=== PATIENT | female | born 1970 | race Caucasian/White ===

== ENCOUNTER → 2024-04-13 | Outpatient (CLI) | payer BC, SELFPAY ==
--- NOTE | 2024-04-13 13:30 | XR_ITS ---
Examination: Breast ultrasound complete, bilateral Date and time of exam: April 13, 2024 1323 hours INDICATIONS: Mammogram January 31, 2024 8 mm oval mass upper outer left breast anterior depth, bilateral microcalcifications Technique: Real-time grayscale ultrasonographic imaging bilateral breasts, including all 4 quadrants as well as nipple retroareolar and axillary regions. Findings: Sonographic images right breast No cystic or solid mass Sonographic images left breast 1:00 cyst 5 x 6 mm No solid nodules IMPRESSION: BI-RADS Category 2: Benign findings
--- NOTE | 2024-04-13 15:30 | XR_ITS ---
Examination: Diagnostic digital mammography, bilateral Computer aided detection 3-D breast Tomosynthesis, bilateral Date and time of exam: April 13, 2024 1342 hours INDICATIONS: Mammogram February 10, 2024 microcalcifications upper outer right breast left breast anterior depth, 8mm oval mass upper left breast anterior depth Technique: Nonmagnified MLO, CC views of the breasts to been obtained, reconstructed from 3-D Tomosynthesis images. R2 computer aided detection program utilized for evaluation of suspicious masses and/or abnormal calcifications. 3-D Tomosynthesis images obtained. Findings: The breasts are heterogeneously dense, which may obscure small masses Probably benign bilateral calcifications Spot compression views left breast do not confirm suspicious mass Impression: BI-RADS Category 3: Probably benign findings One additional 6 month bilateral mammography follow-up is needed to document stability of probably benign bilateral calcifications.
== END | disposition home or self-care (01) ==
PROVIDERS: PCP Family Medicine; Referring Provider Nurse Practitioner; Visit Provider Nurse Practitioner
DX: R92.333 Mammographic heterogeneous density, bilateral breasts (principal); R92.1 Mammographic calcification found on diagnostic imaging of breast
CPT/HCPCS: 76641; 77062; 77066; G0279

== ENCOUNTER 2024-12-01 12:40 | Day surgery (SDC) | payer BC, SELFPAY ==
[2024-11-30 13:42] VITALS: BMI 35.6
[2024-12-01] VITALS (10 sets, daily range): BP systolic 101–134; BP diastolic 67–92; PULSE 67–80; RESP 12–18; TEMP 36.3–36.4; O2SAT 94–100; BMI 37.0
[2024-12-01] MEDS: BENZOCAINE 20% (Hurricaine) SPRAY 1 DOSE TOP (14:39)
[2024-12-01] MEDS: SODIUM CHLORIDE 0.9% 500 ML 500 ML 20 ML IV (14:39)
[2024-12-01] MEDS: fentaNYL CIT INJ 50 mCg/ML AMP 2ML (ASD USE ONLY) IVP (14:41)
[2024-12-01] MEDS: MIDAZOLAM INJ 1 MG/ML VIAL 2 ML (ASD USE ONLY) 2 MG IVP (14:41)
--- NOTE | 2024-12-01 15:51 | SUR.PHASEII ---
1545 Pt awake and alert. Denies pain, N/V or difficulty swallowing. Rodrick Po fluids. Amb with steady gait. Able to dress self. Pt and given dc instructions. Both state understanding. Pt meets dc criteria-to home.
== END 2024-12-01 15:45 | disposition home or self-care (01) ==
PROVIDERS: PCP Family Medicine; Referring Provider Specialist; Visit Provider Specialist
PROC: (CPT 43239; principal; 2024-12-01 09:30)
DX: K31.7 Polyp of stomach and duodenum (principal); K22.2 Esophageal obstruction; K20.90 Esophagitis, unspecified without bleeding; K29.50 Unspecified chronic gastritis without bleeding
CPT/HCPCS: 43248; 43239; 81025; A4649; C1769; J1200; J2250; J3010; J7999; A9270

== ENCOUNTER → 2024-12-27 | Outpatient (CLI) | payer BC, SELFPAY ==
--- NOTE | 2024-12-27 15:00 | XR_ITS ---
Examination: Abdomen AP single view Technique: AP portable supine abdomen, single view Exam date and time: December 27, 2024 1506 hours INDICATIONS: Epigastric pain today. FINDINGS: Moderate to large amounts of stool throughout the colon No obstruction No free air Surgical clips upper right abdomen The osseous structures are intact IMPRESSION: Moderate to large amounts of stool throughout the colon
== END | disposition home or self-care (01) ==
PROVIDERS: PCP Nurse Practitioner; Referring Provider Specialist; Visit Provider Specialist
DX: K59.00 Constipation, unspecified (principal)
CPT/HCPCS: 74018